=== PATIENT | male | born 1995 | race Two or more races ===

== ENCOUNTER → 2021-06-16 | Day surgery (SDC) | payer OTHER ==
[2021-06-13 12:26] LABS: Basophils # (auto) 0.1 10 ^3/uL (0-0.2); Basophils % (auto) 1.2 % (0.0-2.0); Eosinophils # (auto) 0.1 10 ^3/uL (0-0.8); Eosinophils % (auto) 1.6 % (0.0-7.0); Hematocrit 50.3 % (41.0-53.0); Lymphocytes # (auto) 1.7 10 ^3/uL (0.4-5.4); Mean Corpuscular Hemoglobin 28.7 pg (28.0-32.0); Mean Corpuscular Hgb Conc. 33.8 g/dL (32.0-36.0); Mean Corpuscular Volume 84.9 fL (80.0-100.0); Monocytes # (auto) 0.4 10 ^3/uL (0-1.3); Monocytes % (auto) 9.5 % (0.0-12.0); Neutrophils # (auto) 2.2 10 ^3/uL (1.6-8.6); Neutrophils % (auto) 49.7 % (37.0-80.0); Nucleated Red Blood Cells % 0.1 %; Red Blood Cells 5.92 10^6/uL (4.5-5.90); Red Cell Distribution Width 13.7 % (11.8-14.3); White Blood Cell 4.4 10^3/uL (4.4-10.8)
[2021-06-13 13:11] LABS: Calcium 9.3 mg/dL (8.5-10.1); Potassium 4.4 mmol/L (3.5-5.1)
[2021-06-13 13:16] LABS: BUN/Creatinine Ratio 8.5; Bilirubin, Total 1.7 mg/dL (0.2-1.0); Total Protein 7.2 g/dL (6.4-8.2)
[2021-06-13 13:21] LABS: INR 1.05 (0.9-1.15); Partial Thromboplastin Time 28.8 sec (23.6-33.0)
[~2021-06-16] VITALS: Ht 172.7 cm; Wt 63.5 kg
[~2021-06-16] MED LIST: CHOL20007 OR; DOLU1TAB5 PO; DOXY50CA PO; ONDA-144 PO; diphenhdrAMINE HCL 50 MG/1 ML VL ONE
[2021-06-16] MEDS: MIDAZOLAM HCL 5 MG/ML-1ML VIAL ONE ×4 (17:03→17:17)
[2021-06-16] MEDS: fentaNYL CITRATE 100 MCG/2 ML VL ONE ×3 (17:03→17:13)
[2021-06-16 18:05] VITALS: BP 113/73
== END | disposition home or self-care (01) ==
LOC: GI 16:10
PROVIDERS: ATTEND Internal Medicine Gastroenterology
DX: K62.5 Hemorrhage of anus and rectum (principal); K63.5 Polyp of colon; K31.89 Other diseases of stomach and duodenum; K64.0 First degree hemorrhoids; Z21 Asymptomatic human immunodeficiency virus [HIV] infection status; Z86.010 Personal history of colon polyps; Z80.0 Family history of malignant neoplasm of digestive organs; Z88.1 Allergy status to other antibiotic agents; Z88.2 Allergy status to sulfonamides; Z20.822 Contact with and (suspected) exposure to COVID-19
CPT/HCPCS: 36415; 45380; 80053; 85025; 85610; 85730; 88305; 88342; J1200; J2250; J3010; J7030; U0003; G0500